=== PATIENT | female | born 1970 | race Caucasian/White ===

== ENCOUNTER → 2018-05-09 | Outpatient (CLI) | payer OTHER ==
[~2018-05-09] VITALS: Ht 167.6 cm; Wt 99.8 kg
[~2018-05-09] MED LIST: AMITRIPTYLINE H50 M3 PO; CELEBREX 200 M200 MG PO; CENTRUM SILVER1 EAC4 PO; CYMBALTA60 MG PO; DIFLUCAN200 MG PO; DIPHENHIST50 MG PO; FLEXERIL PO; FLONASE 0.05%50 MCG NASAL; HYDROXYZINE HCL25 M1 PO; LASIX 40 MG TAB40 M2 PO; LYRICA 75 MG CA75 MG PO; MAGOX 400400 MG PO; MS CONTIN15 MG PO; MUCINEX600 MG PO; NORCO 10-325 T1 EACH PO; OXYBUTYNIN 5 MG5 M2 PO; PEPCID20 MG PO; PLAVIX 75 MG TA75 M1 PO; POTASSIUM20 PO; PRINIVIL20 MG PO; PROTONIX40 M1 PO; RISPERDAL 1 MG T1 MG PO; SUMATRIPTAN SU100 MG PO; TOPAMAX50 MG PO; TRAMADOL 50 MG50 MG PO; TRAZODONE 150150 M1 PO; VALIUM5 MG PO; VITAMIN B-121000 MCG PO; WELLBUTRIN XL300 MG PO; ZOLOFT50 MG PO
[2018-05-09 13:25] LABS: HEMOGLOBIN 12.9 gm/dL (12.0-15.0); MCH 32.9 pg (26.0-34.0); MCV 94.1 fL (80.0-100.0); RBC 3.94 mil/uL (4.20-5.00); RDW 13.8 % (10.5-14.5); WBC 8.1 thou/uL (4.0-11.0)
[2018-05-09 13:26] LABS: URINE BILIRUBIN NEGATIVE (Negative); URINE BLOOD TRACE (Negative); URINE CLARITY CLOUDY; URINE COLOR YELLOW; URINE GLUCOSE-RANDOM* NEGATIVE (Negative); URINE KETONES NEGATIVE (Negative); URINE NITRITE-REFLEX NEGATIVE (Negative); URINE PROTEIN (DIPSTICK) TRACE (Negative)
[2018-05-09 13:29] LABS: URINE LEUKOCYTES-REFLEX 3+ (Negative)
[2018-05-09 13:38] LABS: BACTERIA-REFLEX >30 Many /HPF (None Seen); CASTS None Seen /LPF (None Seen); CRYSTALS None Seen /LPF (None Seen); SQUAMOUS 0-3 Few /LPF (0-3); URINE WBC-REFLEX >25 Many /HPF (0-5)
[2018-05-09 13:39] LABS: URINE RBC 0-2 Rare /HPF (0-2)
[2018-05-09 13:41] LABS: ALBUMIN 4.2 g/dL (3.4-5.0); CALCIUM 9.6 mg/dL (8.5-10.1); CREATININE 0.8 mg/dL (0.6-1.0); POTASSIUM 3.7 mmol/L (3.5-5.1); PROTIME 10.6 Seconds (9.3-11.4)
== END ==
LOC: PRE 04-18 05:39 → LAB 15:58 → TBA 05-17 05:26 → PRE 05-17 05:26 → EDSTATUS 06-14 15:53
PROVIDERS: Orthopaedic Surgery
DX: M16.11 Unilateral primary osteoarthritis, right hip (principal)

== ENCOUNTER 2018-06-14 05:31 | Inpatient (IN) | payer OTHER ==
[~2018-06-14] VITALS: Ht 165.1 cm; Wt 97.7 kg
[2018-06-14] VITALS (11 sets, daily range): BP systolic 101–125; BP diastolic 58–81
--- NOTE | ~2018-06-14 | O ---
[facility] [place] [address] OPERATIVE REPORT Name: ERIN MCCONNELL Room #: 450-P ADM IN M.R.#: [id number] Admission: 06/14/18 Attend Phys: Juan Miguel Summers MD Discharge: Date of : 66 Report #: [id number] THIS REPORT FOR: //name// CC: Nathan Summers DATE OF SERVICE: 06/14/2018 PREOPERATIVE DIAGNOSIS: Right hip osteoarthritis. POSTOPERATIVE DIAGNOSIS: Right hip osteoarthritis. PROCEDURE: Right total hip arthroplasty. SURGEON: Juan Miguel Summers M.D. HEALTH SERVICE COORDINATOR: Soo Anthony PA-C. INDICATIONS FOR HEALTH SERVICE COORDINATOR: Throughout the case, extensive retraction and manipulation of the hip including dislocation and reduction of the hip was required. This was afforded to me by my traffic assistant. ANESTHESIA: General endotracheal. IMPLANTS: [employer] size 12 high offset Synergy press fit stem, a size 52 R3 acetabular cup with a size 36+0 Oxinium head. ESTIMATED BLOOD LOSS: 100 mL. COMPLICATIONS: None. SPECIMENS: None. CONDITION UPON LEAVING THE OPERATING ROOM: Stable. INDICATION FOR PROCEDURE: The patient is a 47-year-old female with severe right hip osteoarthritis. She has failed conservative treatment for this and after discussion with her, she elected for right total hip arthroplasty. DESCRIPTION OF PROCEDURE: Risks, benefits, alternatives, complications were discussed in detail with the patient including but not limited to risk of anesthesia, risk of damage to nerves, arteries, blood vessels, risk for infection, bleeding, risk for continued hip pain, leg length discrepancy, instability and need for reoperation. Informed consent was obtained from the patient. The right hip was appropriately marked in the preoperative holding area. IV Ancef was given for preoperative antibiotics. She was brought to the [facility] [address] [place] [address] OPERATIVE REPORT Name: ERIN MCCONNELL Room #: 450-P [facility] IN M.R.#: [id number] Admission: 06/14/18 Attend Phys: Juan Miguel Summers MD Discharge: Date of : 66 Report #: [id number] operating room and placed in the supine position on the operating room table. General endotracheal anesthesia was induced without complications. She was then placed in the left lateral decubitus position and the right hip uppermost. Right hip and lower extremity were prepped and draped in normal sterile fashion. Timeout was performed properly identifying the patient, procedure as well as the instrumentation and implants. All in the operating room were in agreement. Standard posterior approach to the hip was made with 10 blade through the skin. Dissection was taken down through the fascia with Bovie cautery and this was cleaned with Seymour elevator. Fresh 10 blade was used to make a fascial incision and this was taken proximally and distally with curved Carrasco scissor. Charnley retractor was placed. Trochanteric bursa was taken down with Bovie cautery. Piriformis tendon was identified, tagged and taken down with Bovie. Short external rotators were also taken down with Bovie cautery. Capsulotomy was made and capsular ends were tagged for later repair. The hip was dislocated and there was extensive osteoarthritic change of the femoral head. Femoral neck cut was made 1 cm proximal to lesser trochanter based on preoperative templating and the femoral head was removed. Deep acetabular retractors were placed and the labrum was removed sharply. Pulvinar was removed with Bovie cautery. Acetabulum was sequentially reamed up to a size 52, at which point there was excellent bleeding cancellous bone. A size 51 trial cup was placed and found to have a good fit. A final size 52 R3 acetabular cup was placed, seated and one acetabular screw was then placed for backup fixation. The polyethylene liner for a 36 head was placed. After this, attention was turned to the femur. This was reamed and broached up to a size 12, at which point a size 12 broach was stable. This was trialed with a high offset neck and a 36+0 head. Hip was reduced, taken through range of motion, found to be stable, found to have equal leg lengths. Hip was dislocated. Broach was a removed and final size 12 high offset Synergy press fit stem was placed. Hip was reduced, taken through range of motion, found to be stable, found to have equal leg lengths. After this trial head was removed and a final size 36+0 Oxinium head was placed, hip was reduced, taken through range of motion, found to be stable, found to have equal leg lengths. The wound was thoroughly irrigated with normal saline. A periarticular injection consisting of morphine, ropivacaine, epinephrine and Toradol was placed around the hip joint ____. The capsule and piriformis were repaired with 0 FiberWire. 1 gram of vancomycin was placed deep in the joint. Fascia was closed with 0 Vicryl, skin was closed with 2-0 Vicryl, 3-0 Monocryl, Dermabond and a KAREY dressing was applied. The patient tolerated this procedure well and went to recovery room under care of anesthesia postoperatively. <ELECTRONICALLY SIGNED> By: Juan Miguel Summers MD 06/15/18 1627 [id number] Juan Miguel Summers MD /nt
[2018-06-14 08:30] LABS: URINE BLOOD NEGATIVE (Negative); URINE CLARITY CLEAR; URINE COLOR YELLOW; URINE GLUCOSE-RANDOM* NEGATIVE (Negative); URINE KETONES TRACE (Negative); URINE LEUKOCYTES NEGATIVE (Negative); URINE NITRITE NEGATIVE (Negative); URINE PROTEIN (DIPSTICK) TRACE (Negative); URINE SPECIFIC GRAVITY 1.025 (1.005-1.035)
[2018-06-14 08:40] LABS: ICTOTEST (BILI CONFIRMATORY) Negative (Negative); URINE BILIRUBIN NEGATIVE (Negative)
[2018-06-15 02:44] VITALS: BP 140/71
[2018-06-15 06:05] LABS: BASOPHILS 0.2 % (0.0-2.0); EOSINOPHILS 0.1 % (0.0-3.0); HEMATOCRIT 25.3 % (37.0-47.0); HEMOGLOBIN 8.7 gm/dL (12.0-15.0); LYMPHOCYTES 10.2 % (24.0-44.0); MCH 33.1 pg (26.0-34.0); MCHC 34.6 g/dL (28.0-37.0); MCV 95.7 fL (80.0-100.0); MONOCYTES 8.6 % (1.0-8.0); PLATELET COUNT 233 thou/uL (150-400); POLYS 80.9 % (36.0-66.0); RBC 2.64 mil/uL (4.20-5.00); RDW 13.9 % (10.5-14.5); WBC 12.3 thou/uL (4.0-11.0)
[2018-06-15 06:31] LABS: CALCIUM 8.4 mg/dL (8.5-10.1); CREATININE 1.2 mg/dL (0.6-1.0); MAGNESIUM 1.8 mg/dL (1.8-2.4)
[2018-06-15 07:55] VITALS: BP 127/61
[2018-06-15 16:38] VITALS: BP 114/86
[2018-06-15] MEDS ORDERED: PERCOCET 10-321 EACH PO (16:39)
[2018-06-15 19:06] VITALS: BP 88/34
[2018-06-16 00:52] VITALS: BP 101/51
[2018-06-16 04:11] VITALS: BP 93/44
[2018-06-16 05:46] LABS: HEMATOCRIT 20.8 % (37.0-47.0); HEMOGLOBIN 7.2 gm/dL (12.0-15.0); MCH 33.9 pg (26.0-34.0); MCHC 34.7 g/dL (28.0-37.0); MCV 97.8 fL (80.0-100.0); RBC 2.12 mil/uL (4.20-5.00); RDW 14.3 % (10.5-14.5); WBC 7.7 thou/uL (4.0-11.0)
[2018-06-16 07:15] VITALS: BP 82/38
[2018-06-16 15:00] VITALS: BP 105/44
[2018-06-16 19:05] VITALS: BP 106/41
[2018-06-17 03:47] VITALS: BP 95/40
[2018-06-17 06:08] LABS: BASOPHILS 0.3 % (0.0-2.0); EOSINOPHILS 1.5 % (0.0-3.0); HEMOGLOBIN 6.6 gm/dL (12.0-15.0)
[2018-06-17 06:11] LABS: LYMPHOCYTES 26.5 % (24.0-44.0); MCH 33.7 pg (26.0-34.0); MCHC 34.3 g/dL (28.0-37.0); MCV 98.5 fL (80.0-100.0); MONOCYTES 9.2 % (1.0-8.0); PLATELET COUNT 175 thou/uL (150-400); POLYS 62.5 % (36.0-66.0); RBC 1.95 mil/uL (4.20-5.00); RDW 14.2 % (10.5-14.5)
[2018-06-17 06:21] LABS: HEMATOCRIT 19.2 % (37.0-47.0)
[2018-06-17 08:19] VITALS: BP 103/47
[2018-06-17 12:53] VITALS: BP 92/47; BP 93/44
[2018-06-17 15:42] VITALS: BP 92/47
[2018-06-17 20:32] VITALS: BP 93/44
[2018-06-18 04:10] VITALS: BP 109/57
[2018-06-18 05:24] LABS: ABSOLUTE NEUTROPHILS 3.9 thou/uL (1.4-8.2); BASOPHILS 0.4 % (0.0-2.0); EOSINOPHILS 3.6 % (0.0-3.0); HEMATOCRIT 22.8 % (37.0-47.0); LYMPHOCYTES 22.1 % (24.0-44.0); MCH 33.7 pg (26.0-34.0); MCV 96.3 fL (80.0-100.0); PLATELET COUNT 182 thou/uL (150-400); POLYS 63.9 % (36.0-66.0); RBC 2.37 mil/uL (4.20-5.00); RDW 14.3 % (10.5-14.5); WBC 6.1 thou/uL (4.0-11.0)
[2018-06-18 07:35] VITALS: BP 98/48
[2018-06-18 15:58] VITALS: BP 106/47
[2018-06-18 19:10] VITALS: BP 97/40
[2018-06-19 09:58] VITALS: BP 98/43
[2018-06-19 16:06] VITALS: BP 98/52
[2018-06-19 19:21] VITALS: BP 104/37
[2018-06-19 22:40] LABS: CALCIUM 8.5 mg/dL (8.5-10.1); POTASSIUM 4.2 mmol/L (3.5-5.1)
[2018-06-19 23:49] VITALS: BP 117/49
[2018-06-20 03:29] VITALS: BP 109/44
[2018-06-20 07:21] VITALS: BP 108/46
[2018-06-20] MEDS ORDERED: MS CONTIN 30 MG30 M1 PO (09:04)
[2018-06-20 15:50] VITALS: BP 97/45
[2018-06-20 19:03] VITALS: BP 119/56
[2018-06-21 04:25] VITALS: BP 120/46
[2018-06-21 07:20] VITALS: BP 138/70
[2018-06-21 15:30] VITALS: BP 116/66
[2018-06-21 19:12] VITALS: BP 102/54
[2018-06-22 04:16] VITALS: BP 97/45
[2018-06-22 07:25] VITALS: BP 120/68
[2018-06-22 10:08] VITALS: BP 95/43
== END 2018-06-22 17:29 | DRG 469 ==
LOC: 4W 05:31 → TBA 05:31 → PRE 10:00 → 4W 13:48 → SICU 06-22 09:15
PROVIDERS: Anesthesiology; Hospitalist; Nurse Practitioner; Orthopaedic Surgery
PROC: 0SR906A Replacement of Right Hip Joint with Oxidized Zirconium on Polyethylene Synthetic Substitute, Uncemented, Open Approach (ICD-10-PCS; principal; 2018-06-14)
DX: M16.11 Unilateral primary osteoarthritis, right hip (principal); E43 Unspecified severe protein-calorie malnutrition; D62 Acute posthemorrhagic anemia; I10 Essential (primary) hypertension; K21.9 Gastro-esophageal reflux disease without esophagitis; G43.909 Migraine, unspecified, not intractable, without status migrainosus; F41.9 Anxiety disorder, unspecified; I95.9 Hypotension, unspecified; G47.33 Obstructive sleep apnea (adult) (pediatric); F32.9 Major depressive disorder, single episode, unspecified; G89.4 Chronic pain syndrome; Z68.35 Body mass index [BMI] 35.0-35.9, adult; Z86.73 Personal history of transient ischemic attack (TIA), and cerebral infarction without residual deficits; Z87.442 Personal history of urinary calculi; Z98.891 History of uterine scar from previous surgery; Z87.891 Personal history of nicotine dependence; Z79.02 Long term (current) use of antithrombotics/antiplatelets; Z79.51 Long term (current) use of inhaled steroids; Z79.899 Other long term (current) drug therapy; Z88.6 Allergy status to analgesic agent; Z91.030 Bee allergy status; Z91.040 Latex allergy status; Z91.048 Other nonmedicinal substance allergy status
CPT/HCPCS: 10047; 27000; 50010; 50101; 50382; 50414; 51771; 53000; 53078; 53368; 54118; 56524; 56527; 56528; 56530; 57095; 57103; 62110; 62900; 70005